=== PATIENT | female | born 2000 | race Caucasian/White ===

== ENCOUNTER 2023-03-13 11:18 | Emergency (ER) | payer MEDICAID ==
[~2023-03-13] VITALS: Ht 175.3 cm; Wt 69.4 kg
[2023-03-13 11:29] VITALS: BP 108/60; PULSE 118; RESP 18; TEMP 98.9; O2SAT 99
[2023-03-13] MEDS ORDERED: MORPHINE SULFATE 2 MG/ML SYR IVP STA (12:11)
[2023-03-13] MEDS ORDERED: NACL 0.9% 1,000 ML IV ONE (12:15)
[2023-03-13 12:39] LABS: BILIRUBIN,URINE 1+ (NEGATIVE); BLOOD, URINE 3+ (NEGATIVE); COLOR,URINE YELLOW (YELLOW); LEUKOCYTE ESTERASE ,URINE NEGATIVE (NEGATIVE); NITRITE, URINE NEGATIVE (NEGATIVE); PROTEIN,URINE 1+ (NEGATIVE); UGLUCOSE NEGATIVE (NEGATIVE)
[2023-03-13 12:41] LABS: HEMOGLOBIN 13.5 g/dL (12.0-16.0)
[2023-03-13 12:41] LABS: APPEARANCE,URINE SLIGHTLY HAZY (CLEAR)
[2023-03-13 12:45] LABS: HEMATOCRIT 40.5 % (36-48); MEAN CORPUSCULAR HEMOGLOBIN 29 pg (27-31); MEAN CORPUSCULAR HGB CONC 33 g/dL (33-37); MEAN CORPUSCULAR VOLUME 88.1 fL (80-94); PLATELET COUNT (AUTO) 137 K/uL (140-450); RED CELL DISTRIBUTION WIDTH 12.9 % (11.6-13.7); WHITE BLOOD COUNT (AUTO) 2.8 K/uL (4.8-10.8)
[2023-03-13 12:47] LABS: BACTERIA,URINE FEW /HPF (None Seen); MUCUS,URINE 1+ /LPF (None Seen); RBC,URINE >20 (MANY) /HPF (0-5); SQUAMOUS EPITHELIAL CELL,UR 0-3 (FEW) /LPF (0-3 (FEW)); WBC,URINE 0-5 /HPF (0-5)
[2023-03-13 12:48] LABS: ICTOTEST NEGATIVE (NEGATIVE)
[2023-03-13 13:03] LABS: LYMPHOCYTES % (MANUAL) 18 % (20-46); MONOCYTES % (MANUAL) 10 % (5-12)
[2023-03-13 13:11] LABS: ALBUMIN 4.2 g/dL (3.4-5.0); ANION GAP 14.3 (8-16); CALCIUM 8.7 mg/dL (8.5-10.1); CARBON DIOXIDE 24.7 mmol/L (21-32); TOTAL BILIRUBIN 0.3 mg/dL (0.0-1.0)
[2023-03-13 13:49] LABS: AMPHETAMINE, URINE NEGATIVE ng/ml (NEG <=1000); BARBITURATE, URINE NEGATIVE ng/ml (NEG <=200); BENZODIAZEPINE, URINE POSITIVE ng/mL (NEG <=200); CANNABINOID, URINE POSITIVE ng/mL (NEG <=50); COCAINE, URINE NEGATIVE ng/mL (NEG <=300); OPIATE, URINE NEGATIVE ng/mL (NEG <=2000); PHENCYCLIDINE SCREEN,URINE NEGATIVE ng/mL (NEG <=25)
[2023-03-13] MEDS ORDERED: IBUP-2213 PO (13:54)
[2023-03-13 17:43] VITALS: BP 105/70; PULSE 79; RESP 18; TEMP 98; O2SAT 100
== END 2023-03-13 17:43 | disposition home or self-care (01) ==
LOC: MED 11:18
DX: N93.9 Abnormal uterine and vaginal bleeding, unspecified (principal); R10.2 Pelvic and perineal pain; F32.9 Major depressive disorder, single episode, unspecified; F41.9 Anxiety disorder, unspecified; Z79.1 Long term (current) use of non-steroidal anti-inflammatories (NSAID)
CPT/HCPCS: 36415; 74177; 80053; 80305; 81001; 81025; 83690; 85025; 96361; 96374; 99285; J2270; J7030; Q9967